=== PATIENT | male | born 1990 | race Caucasian/White ===

== ENCOUNTER 2022-05-11 19:10 | Emergency (ER) | payer OTHER, SELFPAY ==
--- NOTE | ~2022-05-11 | CT_ITS ---
EXAMINATION: CT abdomen pelvis wo con DATE: 05/11/2022 23:24 INDICATION: Left flank pain. TECHNIQUE: Computed tomography (CT) of the abdomen and pelvis was performed without intravenous contr ast. Automated exposure control and iterative reconstruction technique were employed. The dose-length product was 1490.67 mGy-cm. COMPARISON: None. FINDINGS: The visualized portions of the lung bases are clear without pneumonia or pleural effusion. The heart size is normal. No pericardial effusion. There is diffuse hepatic steatosis. The gallbladde r, spleen, pancreas, adrenal glands, and right kidney are normal. There is a 3 mm stone in left kidne y. There is mild left hydronephrosis and hydroureter. There are 1 mm and 2 mm stones in distal left u reter. There are no dilated loops of bowel. There is liquid stool in the colon suggesting diarrhea. T he appendix is normal. There are no pathologically enlarged lymph nodes. There is no free intraperito diana fluid. There is mild thoracolumbar spondylosis. IMPRESSION: 1. 2 mm and 1 mm stones in the distal left ureter with mild left hydronephrosis and hydroureter. 2. 3 mm nonobstructing left kidney stone. Reviewed, dictated and finalized at location A. NC[facility] DEAN IMPRESSION: 1. 2 mm and 1 mm stones in the distal left ureter with mild left hydronephrosi s and hydroureter. 2. 3 mm nonobstructing left kidney stone.
[2022-05-11 19:27] VITALS: BP 150/78; PULSE 79; RESP 16; TEMP 36.8; O2SAT 100
[2022-05-11 19:48] LABS: Appearance Urine Clear (Clear); Bacteria Urine None Seen /hpf; Bilirubin Urine Negative (Negative); Blood Urine 3+ (Negative); Color Urine Yellow (Yellow); Glucose Urine UA Negative (Negative); Ketones Urine Trace mg/dL (Negative); Leukocyte Esterase Ur Trace LEU/UL (Negative); Nitrate Urine Negative (Negative); Non Pathogenic Casts 0-2; Protein Urine Trace mg/dL (Negative); RBC Urine >100 /hpf (0-2); Specific Grav Ur 1.027 (1.001-1.035); Squamous Epithelial Cell Urine None seen /hpf (Few); WBC Urine 0-5 /hpf
[2022-05-11 19:52] LABS: Basophils Percent Auto 0.3 % (0.2-1.2); Eosinophils Absolute Auto 0.2 K/mm3 (0-0.3); Eosinophils Percent Auto 1.7 % (0-4.4); Hematocrit 46.1 % (42.0-52.0); Hemoglobin 15.8 g/dL (14.0-18.0); Immature Granulocyte Absolute 0.05 K/mm3 (0.00-0.031); Immature Granulocyte Percent A 0.5 % (0-0.5); Lymphocytes Absolute Auto 1.42 K/mm3 (0.9-3.2); Mean Corpuscular HGB Conc 34.3 g/dl (32-36); Mean Corpuscular Hemoglobin 28.6 pg (26-34); Mean Corpuscular Volume 83.5 fl (80-100); Mean Platelet Volume 9.6 fl (7.4-10.4); Monocytes Absolute Auto 0.7 K/mm3 (0.1-0.6); Neutrophils Absolute Auto 7.7 K/mm3 (1.3-6.7); Neutrophils Percent Auto 76.5 % (45.5-73.1); Platelet Count Result 240 k/mm3 (150-375); Red Blood Count 5.52 M/mm3 (4.6-6.20); Red Cell Distribution Width 13.3 % (11.5-14.5); White Blood Count 10.1 K/mm3 (4.5-10.0)
[2022-05-11 19:55] LABS: Add Urine Microscopic? YES
[2022-05-11 20:03] LABS: Alanine Aminotransferase 88 U/L (6-50); Albumin Level 4.6 g/dL (3.5-5.1); Alkaline Phosphatase 97 U/L (38-126); Anion Gap 8 mmol/L (8-16); Aspartate Amino Transferase 59 U/L (17-59); Blood Urea Nitrogen 19 mg/dL (9-20); Calcium 8.7 mg/dL (8.4-10.2); Carbon Dioxide 27 mmol/L (22-30); Chloride 107 mmol/L (98-107); Estimated CRCL calculation 90 ml/min; Estimated Glomerular Filt Rate 60; Glucose 117 mg/dL (65-110); Potassium 3.4 mmol/L (3.4-5.0); Sodium 142 mmol/L (137-145)
[2022-05-11 21:25] VITALS: BP 149/88; PULSE 84; TEMP 37; O2SAT 99
--- NOTE | 2022-05-11 23:04 | ED.BACK ---
HPI - Back Pain/Injury General Chief Complaint: Back Pain/Injury <Genevieve Tapia PA-C - Last Filed: 05/12/22 01:53> Stated Complaint: back pain <Genevieve Tapia PA-C - Last Filed: 05/12/22 01:53> Time Seen by Provider: 05/11/22 22:51 <Genevieve Tapia PA-C - Last Filed: 05/12/22 01:53> History of Present Illness HPI Narrative: 32-year-old male reports for left-sided colicky flank pain and left-sided abdominal pain that started 8 hours ago. Patient reports 1 episode of self-induced emesis and nausea. Denies diarrhea, constipation, fever, body aches, chills, cough, congestion, chest pain, shortness of breath. Patient is reporting dysuria and urinary urgency, however when he tries to urinate, little urine comes out. Denies penile rashes, penile discharge, concern for STDs, testicular pain. Denies numbness or weakness to lower extremities, urinary or or fecal incontinence or retention, saddle anesthesia. <YOSELYN Kendall Last Filed: 05/12/22 01:53> Related Data Allergies/Adverse Reactions: Allergies Allergy/AdvReac Type Severity Reaction Status Date / Time amoxicillin Allergy Rash Verified 05/11/22 23:30 <Genevieve Tapia PA-C - Last Filed: 05/12/22 01:53> Review of Systems Review of Systems: CONSTITUTIONAL: Denies fever, chills EYES: Denies visual changes, redness, or discharge. ENT: Denies rhinorrhea, congestion, sore throat, or otalgia. CARDIOVASCULAR: Denies chest pain, palpitations, or edema. RESPIRATORY: Denies cough or dyspnea. GASTROINTESTINAL: See HPI GENITOURINARY: Denies dysuria or hematuria. SKIN: Denies rash or itching. MUSCULOSKELETAL: Denies joint pain, or myalgia. NEUROLOGIC: Denies headache, numbness, dizziness, or weakness. PSYCHIATRIC: Denies anxiety or depression. <Genevieve Tapia PA-C - Last Filed: 05/12/22 01:53> Exam Narrative: GENERAL: Well-appearing, well-nourished, and in no acute distress. HEAD: Normocephalic, atraumatic. EYES: PERRLA and EOMI. ENT: Nares clear, no rhinorrhea or epistaxis. Mucous membranes moist. Oropharynx without tonsillar hypertrophy exudate or other lesions. NECK: Supple. No adenopathy or masses. No carotid bruits or JVD CHEST: Clear to auscultation. No respiratory distress. No wheezes rales or rhonchi HEART: Regular rate and rhythm. No murmur heard. Normal peripheral pulses. ABDOMEN: Soft, nontender, nondistended, normal active bowel sounds. Negative CVA tenderness to the right. Positive CVA tenderness to the left. No midline vertebral tenderness. no overlying skin rash to back EXTREMITIES: Normal range of motion. No edema. SKIN: Warm, dry, no rash. NEURO: No focal deficits. Alert and oriented x3. 5 out of 5 in upper and lower extremities. Sensation intact. PSYCH: Normal mood and affect. <Genevieve Tapia PA-C - Last Filed: 05/12/22 01:53> Course Course Emergency Course: 0028: Patient reevaluated. I discussed his lab and imaging findings consistent with a 3 mm UVJ stone. He is still in pain. Will administer 1 mg of Dilaudid at this time and evaluate for pain control. Vitals remained stable. <Genevieve Tapia PA-C - Last Filed: 05/12/22 01:53> FUEL CELL TEST ENGINEER/PA Physician Supervision This visit was performed by both the physician and an APC. I performed all aspects of the MDM as documented <Zeeshan Salgado MD - Last Filed: 05/12/22 01:23> Vital Signs Vital signs: Vital Signs Temperature 98.3 F 05/11/22 19:27 Pulse Rate 79 05/11/22 19:27 Respiratory Rate 16 05/11/22 19:27 Blood Pressure 150/78 H 05/11/22 19:27 Pulse Oximetry 100 05/11/22 19:27 Oxygen Delivery Room Air 05/11/22 19:27 Temperature 98.6 F 05/11/22 21:25 Pulse Rate 99 05/12/22 00:41 Respiratory Rate 16 05/12/22 00:41 Blood Pressure 143/76 H 05/12/22 00:41 Pulse Oximetry 100 05/12/22 00:41 Oxygen Delivery Room Air 05/11/22 19:27 <Genevieve Tapia PA-C - Last Filed: 05/12/22 01:53>
[2022-05-11] MEDS: ONDANSETRON INJ 4 MG/2 ML VIAL IV PUSH (23:26)
[2022-05-11] MEDS: MORPHINE SULFATE (*CRX) 4 MG/ML INJ IV PUSH (23:27)
[2022-05-11] MEDS: SODIUM CHLORIDE 0.9% IV 1,000 ML 999 ML IV CONT (23:29)
[2022-05-12 00:19] LABS: Lipase 113 U/L (23-300)
[2022-05-12] MEDS: HYDROmorphone HCL INJ (*CRX) 1 MG/ML SYR IV PUSH (00:39)
[2022-05-12 00:41] VITALS: BP 143/76; PULSE 99; RESP 16; O2SAT 100
[2022-05-12 01:55] VITALS: BP 173/70; PULSE 85; RESP 16; O2SAT 100
== END 2022-05-12 01:55 | disposition home or self-care (01) ==
PROVIDERS: Emergency Medicine; Emergency Provider Physician Assistant
DX: N20.2 Calculus of kidney with calculus of ureter (principal)
CPT/HCPCS: 36415; 74176; 80053; 81001; 83690; 85025; 96361; 96374; 96375; 99284; J1170; J2270; J2405; J7030

== ENCOUNTER 2024-01-28 10:26 | Outpatient (CLI) | payer OTHER, SELFPAY ==
--- NOTE | ~2024-01-28 | CT_ITS ---
EXAMINATION: CT brain wo con, CT sinus w con DATE: 01/28/2024 11:32 INDICATION: Chronic intractable headaches TECHNIQUE: 1. Computed tomography (CT) of the head was performed without intravenous contrast. Sagittal and david nal reconstructions were performed. The mA was adjusted according to patient size. Iterative reconstr uction technique was employed. The dose-length product was 599.57 mGy-cm. 2. CT of the nasal sinuses and performed with 100 mL Omnipaque-350 intravenous contrast. Sagittal and coronal reconstructions were performed. Iterative reconstruction technique was employed. The dose le ngth product was 268.51 mGy-cm. COMPARISON: None FINDINGS: Head: No acute intracranial hemorrhage, acute infarction or abnormal extra axial fluid collection. Ventricl es are normal and symmetric. No mass/mass effect. No abnormally enhancing brain lesions identified on the postcontrast images. Paranasal sinuses: Mild mucosal thickening and mucous retention cyst in the bilateral maxillary sinuses. This includes m ild mucosal thickening occluding the ostium of the left ostiomeatal unit. Nasal septum is midline. Ch anges of bilateral intraocular lens replacement. Orbits are otherwise normal. Mastoid air cells and m iddle ear cavities are clear. Horizontally oriented posterior most right maxillary molar. IMPRESSION: 1. Normal brain. No acute intracranial process. 2. Mild mucosal thickening and mucous retention cyst in the bilateral maxillary sinuses with occlusio n of the left ostiomeatal unit. Reviewed, dictated and finalized at location B. CE TIER IMPRESSION: 1. Normal brain. No acute intracranial process. 2. Mild mucosal thickening and mucous retention cyst in the bilateral maxillary sinuses with occlusion of the left ostiomeatal unit.
== END 2024-01-28 10:27 | disposition home or self-care (01) ==
PROVIDERS: Visit Provider Family Medicine
DX: J98.4 Other disorders of lung (principal); J34.1 Cyst and mucocele of nose and nasal sinus; J34.89 Other specified disorders of nose and nasal sinuses; G89.29 Other chronic pain; R51.9 Headache, unspecified; J32.9 Chronic sinusitis, unspecified
CPT/HCPCS: 70450; 70487; Q9967